=== PATIENT | female | born 1940 | race Caucasian/White ===

== ENCOUNTER → 2016-11-17 | Outpatient (CLI) | payer MEDICARE ==
[~2016-11-17] MED LIST: ATENOLOL50 MG PO; CALCIUM + D 6001 TA1 PO; FISH OIL 1,4001 EACH PO; OMEPRAZOLE20 M2 PO; SYNTHROID0.05 MG; VIT B-12
--- NOTE | ~2016-11-17 | MY29 ---
[facility] A Service of [facility] RADIOLOGY TEXT RESULTS PATIENT: KELLI DARDEN LOCATION: [facility] : 40 UNIT #: [id number] AGE: [address]: Sumeet Pinon MD SEX: F ORDER DR: [id number] [facility] [address] [place], [place] [address] [id number] O MR#: [id number] Acc #: [id number] NAME: KELLI DARDEN : 1940 SEX: F STUDY DATE/TIME: 11/17/2016 8:03 UNIT: [facility] ROOM: STUDY DESCRIPTION: MY [facility] SCREENING W/ CAD BILAT Attending Physician: Sumeet Pinon M.D. Referring Physician: Sumeet Pinon M.D. Ordering Physician: Sumeet Pinon M.D. Primary Care Physician: Sumeet Pinon M.D. MEDICAL IMAGING REPORT This report is preliminary unless electronic signature is present EXAM Digital screening mammogram 11/17/2016 HISTORY 75-year-old woman no risk elevation. Previous right breast biopsy. Annual screen. COMPARISON Mammograms date to 12/26/2009 with most recent 11/13/2015. FINDINGS Digital imaging of each breast was completed utilizing screening protocol. Biopsy marker was placed on the right breast. Review includes FDA-approved CAD device. Breast parenchyma is moderately dense bilaterally. Mild dominance upper hemisphere left breast is stable. There is no interval occurring mass. I see no suspicious microcalcifications and no architectural deformity. IMPRESSION Stable benign mammogram. Annual screening recommended. Patients over the age of 40 are entered into a reminder system with target due date for the next mammogram. A result letter will also be sent to the patient. BIRADS: 2, benign findings. Dictated by... Bereket Tolliver M.D. THIS IS AN ELECTRONICALLY VERIFIED REPORT Bereket Tolliver M.D. at 11/17/2016 2:24 PM [facility] A Service of [facility] RADIOLOGY TEXT RESULTS PATIENT: KELLI DARDEN LOCATION: [facility] : 40 UNIT #: [id number] AGE: [address]: Sumeet Pinon MD SEX: F ORDER DR: EUGENIO/rnr TD: 11/17/2016 13:14 JOB #: [id number] MEDICAL IMAGING REPORT Page 1 of 1 COPY
== END | disposition home or self-care (01) ==
LOC: CWCC 07:38
DX: Z12.31 Encounter for screening mammogram for malignant neoplasm of breast (principal); Z98.890 Other specified postprocedural states
CPT/HCPCS: G0202